=== PATIENT | female | born 1935 | race Caucasian/White ===

== ENCOUNTER 2018-01-22 19:42 | Inpatient (IN) | payer MEDICARE, OTHER ==
[2018-01-22] MEDS: ACETAMINOPHEN 325 MG TAB PO (20:26)
[2018-01-22] MEDS: CEFTRIAXONE 1 GM/50 ML (PMX) 50 ML IVPB (20:27)
[2018-01-22] MEDS: SODIUM CHLORIDE 0.9% 1L BAG IV* (20:27)
[2018-01-22 20:41] LABS: ADD MAN DIFF? NO
[2018-01-22 20:44] LABS: ABNORMAL IP MESSAGE 1; BASOPHILS % 0.2 % (0.0-2.0); EOSINOPHILS % 0.4 % (0.0-7.0); HEMATOCRIT 29.9 % (37.0-47.0); HEMOGLOBIN 9.3 g/dl (12.0-16.0); LYMPHOCYTES # 0.3 10^3/ul (0.8-2.9); LYMPHOCYTES % 6.4 % (15.0-51.0); MEAN CORPUSCULAR HEMOGLOBIN 25.1 pg (29.0-33.0); MEAN CORPUSCULAR HGB CONC 31.1 g/dl (32.0-37.0); MEAN CORPUSCULAR VOLUME 80.6 fl (82.0-101.0); MEAN PLATELET VOLUME 9.4 fl (7.4-10.4); MONOCYTE # 0.3 10^3/ul (0.3-0.9); MONOCYTES % 6.4 % (0.0-11.0); NEUTROPHIL # 4.2 10^3/ul (1.6-7.5); NEUTROPHILS % 86.4 % (39.0-77.0); PLATELET COUNT 216 10^3/UL (140-415); RED BLOOD COUNT 3.71 10^6/ul (4.20-5.40); RED CELL DISTRIBUTION WIDTH 15.3 % (11.5-14.5)
[2018-01-22 20:44] LABS: WHITE BLOOD COUNT 4.8 10^3/ul (4.8-10.8)
[2018-01-22 21:03] LABS: LACTIC ACID 1.2 mmol/L (0.5-2.0)
[2018-01-22 21:03] LABS: POSITIVE DIFF @See below
[2018-01-22 21:04] LABS: ALANINE AMINOTRANSFERASE 21 IU/L (13-69); ALBUMIN 3.7 g/dl (3.3-4.9); ALBUMIN/GLOBULIN RATIO 0.97; ALKALINE PHOSPHATASE 125 IU/L (42-121); AMYLASE 43 U/L (11-123); ANION GAP 15 (8-16); ASPARTATE AMINO TRANSFERASE 23 IU/L (15-46); BILIRUBIN,INDIRECT 0.5 mg/dl (0-1.1); BILIRUBIN,TOTAL 0.5 mg/dl (0.2-1.3); BLOOD UREA NITROGEN 14 mg/dl (7-20); CALCIUM 8.8 mg/dl (8.4-10.2); CARBON DIOXIDE 24 mmol/L (21-31); CHLORIDE 100 mmol/L (97-110); CREATININE 0.89 mg/dl (0.44-1.00); GLUCOSE 118 mg/dl (70-220); LIPASE 15 U/L (23-300); POTASSIUM 4.2 mmol/L (3.5-5.1); SODIUM 135 mmol/L (135-144); TOTAL PROTEIN 7.5 g/dl (6.1-8.1)
[2018-01-22 21:07] LABS: INR 1.11; PROTIME 14.5 Sec (11.9-14.9); PT RATIO 1.1
[2018-01-22 21:08] LABS: PARTIAL THROMBOPLASTIN TIME 35.1 Sec (25.0-35.0)
[2018-01-22 21:17] LABS: TROPONIN-I < 0.012 ng/ml (0.000-0.120)
[2018-01-22 22:16] LABS: ADD UMIC YES; UR ASCORBIC ACID NEGATIVE (NEGATIVE); UR BACTERIA MANY /HPF (NONE SEEN); UR BILIRUBIN (Dip) NEGATIVE (NEGATIVE); UR BLOOD (Dip) 2+ mg/dL (NEGATIVE); UR CLARITY CLOUDY (CLEAR); UR COLOR AMBER (YELLOW); UR GLUCOSE (Dip) NEGATIVE (NEGATIVE); UR KETONES (Dip) NEGATIVE (NEGATIVE); UR LEUKOCYTE ESTERASE (Dip) TRACE Leu/ul (NEGATIVE); UR MUCUS MODERATE /HPF (NONE SEEN); UR NITRITE (Dip) NEGATIVE (NEGATIVE); UR RBC 1 /HPF (0-5); UR SPECIFIC GRAVITY (Dip) 1.018 (1.003-1.030); UR SQUAMOUS EPITHELIAL CELL FEW /HPF (FEW); UR TOTAL PROTEIN (Dip) 1+ mg/dl (NEGATIVE); UR UROBILINOGEN (Dip) 1+ mg/dL (NEGATIVE); UR WBC 14 /HPF (0-5)
[2018-01-22 22:35] LABS: LACTIC ACID 0.5 mmol/L (0.5-2.0)
[2018-01-22] MEDS ORDERED: ACETAMINOPHEN 325 MG TAB PO (23:00)
[2018-01-22] MEDS ORDERED: ONDANSETRON 4 MG INJ IV (23:00)
[2018-01-22] MEDS ORDERED: NACL 0.9% 3 ML SYG IV (23:00)
[2018-01-22] MEDS ORDERED: BISACODYL (EC) 5 MG TAB PO (23:00)
[2018-01-22] MEDS ORDERED: DOCUSATE SODIUM 100 MG CAP PO (23:00)
[2018-01-22] MEDS ORDERED: HYDROmorphONE 4 MG TAB PO (23:00)
[2018-01-22] MEDS: IBUPROFEN 600 MG TAB PO (23:14)
[2018-01-23 00:57] LABS: LACTIC ACID 0.9 mmol/L (0.5-2.0)
[2018-01-23 07:20] LABS: ADD MAN DIFF? NO
[2018-01-23 07:26] LABS: ABNORMAL IP MESSAGE 1; BASOPHILS % 0.3 % (0.0-2.0); EOSINOPHILS # 0.1 10^3/ul (0.0-0.5); EOSINOPHILS % 1.6 % (0.0-7.0); HEMATOCRIT 29.2 % (37.0-47.0); HEMOGLOBIN 8.7 g/dl (12.0-16.0); LYMPHOCYTES # 0.5 10^3/ul (0.8-2.9); LYMPHOCYTES % 15.4 % (15.0-51.0); MEAN CORPUSCULAR HEMOGLOBIN 24.9 pg (29.0-33.0); MEAN CORPUSCULAR HGB CONC 29.8 g/dl (32.0-37.0); MEAN CORPUSCULAR VOLUME 83.4 fl (82.0-101.0); MEAN PLATELET VOLUME 9.6 fl (7.4-10.4); MONOCYTE # 0.3 10^3/ul (0.3-0.9); MONOCYTES % 9.5 % (0.0-11.0); NEUTROPHIL # 2.2 10^3/ul (1.6-7.5); NEUTROPHILS % 72.9 % (39.0-77.0); PLATELET COUNT 181 10^3/UL (140-415); RED CELL DISTRIBUTION WIDTH 15.4 % (11.5-14.5)
[2018-01-23 07:26] LABS: WHITE BLOOD COUNT 3.1 10^3/ul (4.8-10.8)
[2018-01-23 07:27] LABS: POSITIVE DIFF @See below
[2018-01-23 07:36] LABS: HEMOGLOBIN A1C 5.6 % (0-5.9)
[2018-01-23 07:46] LABS: IRON 23 ug/dl (35-150)
[2018-01-23 07:52] LABS: ALANINE AMINOTRANSFERASE 18 IU/L (13-69); ALBUMIN 2.9 g/dl (3.3-4.9); ALKALINE PHOSPHATASE 93 IU/L (42-121); ANION GAP 9 (8-16); ASPARTATE AMINO TRANSFERASE 15 IU/L (15-46); BILIRUBIN,INDIRECT 0.2 mg/dl (0-1.1); BILIRUBIN,TOTAL 0.2 mg/dl (0.2-1.3); BLOOD UREA NITROGEN 13 mg/dl (7-20); CALCIUM 8.4 mg/dl (8.4-10.2); CARBON DIOXIDE 25 mmol/L (21-31); CHLORIDE 111 mmol/L (97-110); CHOL/HDL RATIO 5.8 RATIO; CHOLESTEROL 158 mg/dl (100-200); CREATININE 0.78 mg/dl (0.44-1.00); GLUCOSE 99 mg/dl (70-220); HDL CHOLESTEROL 27 mg/dl (33-92); LDL CHOLESTEROL,CALCULATED 108 mg/dl; POTASSIUM 3.5 mmol/L (3.5-5.1); SODIUM 141 mmol/L (135-144); TOTAL PROTEIN 6.1 g/dl (6.1-8.1); TRIGLYCERIDES 117 mg/dl (0-149)
[2018-01-23 07:56] LABS: % IRON SATURATION 11 % SAT (22-52); TOTAL IRON BINDING CAPACITY 215 ug/dl (241-421)
[2018-01-23] MEDS: morphine (ER) 15 MG TAB PO (09:33)
[2018-01-23] MEDS: ENOXAPARIN 40 MG/0.4 ML SYG SC (09:39)
[2018-01-23] MEDS: CEFTRIAXONE 1 GM/50 ML (PMX) 50 ML IVPB (21:34)
[2018-01-24 08:11] LABS: ADD MAN DIFF? NO
[2018-01-24 08:17] LABS: WHITE BLOOD COUNT 3.3 10^3/ul (4.8-10.8)
[2018-01-24 08:17] LABS: BASOPHILS % 0.6 % (0.0-2.0); EOSINOPHILS % 0.9 % (0.0-7.0); HEMATOCRIT 28.7 % (37.0-47.0); HEMOGLOBIN 8.6 g/dl (12.0-16.0); LYMPHOCYTES # 0.6 10^3/ul (0.8-2.9); LYMPHOCYTES % 18.8 % (15.0-51.0); MEAN CORPUSCULAR HEMOGLOBIN 24.9 pg (29.0-33.0); MEAN CORPUSCULAR VOLUME 83.2 fl (82.0-101.0); MEAN PLATELET VOLUME 9.1 fl (7.4-10.4); MONOCYTE # 0.4 10^3/ul (0.3-0.9); MONOCYTES % 12.3 % (0.0-11.0); NEUTROPHIL # 2.2 10^3/ul (1.6-7.5); NEUTROPHILS % 67.1 % (39.0-77.0); PLATELET COUNT 213 10^3/UL (140-415); RED BLOOD COUNT 3.45 10^6/ul (4.20-5.40); RED CELL DISTRIBUTION WIDTH 15.4 % (11.5-14.5)
[2018-01-24 08:36] LABS: ANION GAP 8 (8-16); BLOOD UREA NITROGEN 10 mg/dl (7-20); CALCIUM 8.8 mg/dl (8.4-10.2); CARBON DIOXIDE 24 mmol/L (21-31); CHLORIDE 111 mmol/L (97-110); CREATININE 0.78 mg/dl (0.44-1.00); GLUCOSE 99 mg/dl (70-220); POTASSIUM 4.1 mmol/L (3.5-5.1); SODIUM 139 mmol/L (135-144)
[2018-01-24] MEDS: morphine (ER) 15 MG TAB PO (08:41)
[2018-01-24] MEDS: AMLODIPINE 5 MG TAB PO (08:42)
[2018-01-24] MEDS: ENOXAPARIN 40 MG/0.4 ML SYG SC (08:50)
[2018-01-24] MEDS ORDERED: VANCOMYCIN IV PER PHARMACY XX (09:00)
[2018-01-24] MEDS: VANCOMYCIN 1.5 GM in SOD CHLORIDE 0.9% 250 ML IVPB (10:32)
[2018-01-24 13:01] LABS: FREE T4 (FREE THYROXINE) 1.07 ng/dl (0.85-1.93)
[2018-01-24] MEDS: SOD FERRIC GLUC COMPLX 125 MG in SOD CHLORIDE 0.9% 100 ML IVPB (16:57)
[2018-01-24] MEDS: CEFTRIAXONE 1 GM/50 ML (PMX) 50 ML IVPB (18:44)
[2018-01-25 07:21] LABS: ADD MAN DIFF? NO
[2018-01-25 07:22] LABS: WHITE BLOOD COUNT 3.9 10^3/ul (4.8-10.8)
[2018-01-25 07:22] LABS: BASOPHILS % 0.3 % (0.0-2.0); EOSINOPHILS # 0.1 10^3/ul (0.0-0.5); HEMATOCRIT 28.5 % (37.0-47.0); HEMOGLOBIN 8.6 g/dl (12.0-16.0); LYMPHOCYTES # 0.7 10^3/ul (0.8-2.9); MEAN CORPUSCULAR HEMOGLOBIN 24.9 pg (29.0-33.0); MEAN CORPUSCULAR HGB CONC 30.2 g/dl (32.0-37.0); MEAN CORPUSCULAR VOLUME 82.6 fl (82.0-101.0); MONOCYTE # 0.3 10^3/ul (0.3-0.9); MONOCYTES % 7.6 % (0.0-11.0); NEUTROPHIL # 2.9 10^3/ul (1.6-7.5); NEUTROPHILS % 72.8 % (39.0-77.0); PLATELET COUNT 191 10^3/UL (140-415); RED BLOOD COUNT 3.45 10^6/ul (4.20-5.40); RED CELL DISTRIBUTION WIDTH 15.9 % (11.5-14.5)
[2018-01-25 07:26] LABS: MEAN PLATELET VOLUME 11.2 fl (7.4-10.4); POSITIVE DIFF @See below
[2018-01-25 07:45] LABS: ANION GAP 8 (8-16); BLOOD UREA NITROGEN 8 mg/dl (7-20); CALCIUM 8.6 mg/dl (8.4-10.2); CARBON DIOXIDE 24 mmol/L (21-31); CHLORIDE 109 mmol/L (97-110); CREATININE 0.68 mg/dl (0.44-1.00); GLUCOSE 96 mg/dl (70-220); POTASSIUM 4.4 mmol/L (3.5-5.1); SODIUM 137 mmol/L (135-144)
[2018-01-25] MEDS: morphine (ER) 15 MG TAB PO (08:52)
[2018-01-25] MEDS: AMLODIPINE 5 MG TAB PO (08:52)
[2018-01-25] MEDS: VANCOMYCIN 1 GM 250 ML IVPB (11:15)
[2018-01-25] MEDS: SOD FERRIC GLUC COMPLX 125 MG in SOD CHLORIDE 0.9% 100 ML IVPB (17:00)
[2018-01-25] MEDS: CEFTRIAXONE 1 GM/50 ML (PMX) 50 ML IVPB (18:33)
== END 2018-01-25 19:30 | disposition home health service (06) | DRG 872 ==
LOC: TEL 22:34 → E/R 19:42
DX: A41.1 Sepsis due to other specified staphylococcus (principal); N39.0 Urinary tract infection, site not specified; I10 Essential (primary) hypertension; E78.5 Hyperlipidemia, unspecified; D50.9 Iron deficiency anemia, unspecified; E03.9 Hypothyroidism, unspecified; Z85.048 Personal history of other malignant neoplasm of rectum, rectosigmoid junction, and anus
CPT/HCPCS: 36415; 71045; 80048; 80053; 80061; 81001; 82150; 82728; 83036; 83540; 83605; 83690; 83735; 84439; 84443; 84484; 85025; 85610; 85730; 87040; 87045; 87086; 93005; 96374; 99291-25

== ENCOUNTER 2018-11-11 01:06 | Emergency (ER) | payer MEDICARE, OTHER ==
[2018-11-11] MEDS: SOD CHLORIDE 0.9% 1,160 ML IV (01:33)
[2018-11-11] MEDS: ACETAMINOPHEN 650 MG SUPP PR (01:34)
[2018-11-11 01:35] LABS: ADD MAN DIFF? NO
[2018-11-11] MEDS: NALOXONE (0.4 MG/ML) INJ IV (01:37)
[2018-11-11] MEDS: PIPER-TAZO 3.375 GM IV (PMX) 100 ML IVPB (01:37)
[2018-11-11] MEDS: VANCOMYCIN 1 GM (PMX) 250 ML IVPB (01:37)
[2018-11-11 01:38] LABS: WHITE BLOOD COUNT 12.5 10^3/ul (4.8-10.8)
[2018-11-11 01:38] LABS: BASOPHIL # 0.1 10^3/ul (0.0-0.1); BASOPHILS % 0.6 % (0.0-2.0); HEMATOCRIT 45.3 % (37.0-47.0); HEMOGLOBIN 13.7 g/dl (12.0-16.0); LYMPHOCYTES # 0.7 10^3/ul (0.8-2.9); LYMPHOCYTES % 5.2 % (15.0-51.0); MEAN CORPUSCULAR HEMOGLOBIN 24.6 pg (29.0-33.0); MEAN CORPUSCULAR HGB CONC 30.2 g/dl (32.0-37.0); MEAN CORPUSCULAR VOLUME 81.2 fl (82.0-101.0); MEAN PLATELET VOLUME 9.9 fl (7.4-10.4); MONOCYTE # 0.4 10^3/ul (0.3-0.9); NEUTROPHIL # 11.2 10^3/ul (1.6-7.5); NEUTROPHILS % 90.1 % (39.0-77.0); PLATELET COUNT 246 10^3/UL (140-415); RED BLOOD COUNT 5.58 10^6/ul (4.20-5.40); RED CELL DISTRIBUTION WIDTH 19.7 % (11.5-14.5)
[2018-11-11 01:56] LABS: INR 1.21; PROTIME 15.4 Sec (11.9-14.9); PT RATIO 1.2
[2018-11-11 01:57] LABS: PARTIAL THROMBOPLASTIN TIME 27.4 Sec (23.0-35.0)
[2018-11-11 02:03] LABS: ALANINE AMINOTRANSFERASE 27 IU/L (13-69); ALBUMIN 3.2 g/dl (3.3-4.9); ALBUMIN/GLOBULIN RATIO 0.76; ALKALINE PHOSPHATASE 256 IU/L (42-121); ANION GAP 16 (5-13); ASPARTATE AMINO TRANSFERASE 52 IU/L (15-46); BILIRUBIN,INDIRECT 0.6 mg/dl (0-1.1); BILIRUBIN,TOTAL 0.6 mg/dl (0.2-1.3); BLOOD UREA NITROGEN 57 mg/dl (7-20); CARBON DIOXIDE 19 mmol/L (21-31); CHLORIDE 96 mmol/L (97-110); CREATININE 1.85 mg/dl (0.44-1.00); GLUCOSE 112 mg/dl (70-220); POTASSIUM 5.9 mmol/L (3.5-5.1); SODIUM 131 mmol/L (135-144); TOTAL PROTEIN 7.4 g/dl (6.1-8.1)
[2018-11-11 02:14] LABS: TROPONIN-I 0.076 ng/ml (0.000-0.120)
[2018-11-11 02:19] LABS: FREE THYROXINE INDEX (Calc) 2.62 ug/ml (0.65-3.89); T3 UPTAKE 47.7 % (23.5-40.5); T4 (THYROXINE) 5.5 ug/dl (5.5-11.0)
[2018-11-11 03:33] LABS: URINE BLOOD (Dip) POC 2+ (NEGATIVE); URINE GLUCOSE (Dip) POC Negative (NEGATIVE); URINE KETONES (Dip) POC Negative (NEGATIVE); URINE LEUKOCYTE EST (Dip) POC 1+ (NEGATIVE); URINE NITRITE (Dip) POC Negative (NEGATIVE); URINE TOTAL PROTEIN POC 1+ (NEGATIVE)
[2018-11-11] MEDS ORDERED: DEXTROSE 50% 50 ML SYRINGE IV (04:00)
[2018-11-11 04:29] LABS: ADD UMIC YES; UR ASCORBIC ACID NEGATIVE (NEGATIVE); UR BACTERIA MANY /HPF (NONE SEEN); UR BILIRUBIN (Dip) NEGATIVE (NEGATIVE); UR BLOOD (Dip) 2+ mg/dL (NEGATIVE); UR CLARITY CLOUDY (CLEAR); UR COLOR AMBER (YELLOW); UR GLUCOSE (Dip) NEGATIVE (NEGATIVE); UR KETONES (Dip) NEGATIVE (NEGATIVE); UR LEUKOCYTE ESTERASE (Dip) 2+ Leu/ul (NEGATIVE); UR MUCUS MANY /HPF (NONE SEEN); UR NITRITE (Dip) NEGATIVE (NEGATIVE); UR RBC > 182 /HPF (0-5); UR SPECIFIC GRAVITY (Dip) 1.016 (1.003-1.030); UR SQUAMOUS EPITHELIAL CELL FEW /HPF (FEW); UR TOTAL PROTEIN (Dip) NEGATIVE (NEGATIVE); UR UROBILINOGEN (Dip) NEGATIVE (NEGATIVE); UR WBC 74 /HPF (0-5)
[2018-11-11] MEDS: DEXTROSE 50% 50 ML SYRINGE IV (05:17)
[2018-11-11] MEDS: NORepinephrine 8MG/250 ML (PMX 250 ML IV (05:18)
[2018-11-11] MEDS: INSULIN REGULAR, HUMAN 100 UNIT/1 ML 3ML VIAL IVP (05:28)
[2018-11-11] MEDS: ALBUTEROL 0.5% (NEB) 2.5 MG/0.5 ML AMP INH (05:28)
[2018-11-11 06:00] LABS: AADO2 Arterial 41.8 mmHg (7.0-24.0); Allen Test ACCEPTAB; Arterial Base Excess -4.2 mmol/L (-3.0-3); Arterial Blood Gas Oxygen Sat 95.5 mmHG (95.0-100.0); Arterial COHb 0.3 % (0.0-3.0); Arterial HCO3 18.3 mmol/L (22.0-26.0); Arterial MetHb 0.2 % (0.0-1.5); Arterial pCO2 25.5 mmhg (35-45); MODE ROOM AIR; Site Left Radial
[2018-11-11] MEDS ORDERED: ACETAMINOPHEN 650MG/20.3ML CUP PO (06:00)
[2018-11-11] MEDS: ALBUMIN HUMAN 25% 100 ML IV ×2 (06:00→07:00)
[2018-11-11] MEDS: HEPARIN 5,000 UNIT/1 ML VIAL SC (06:00)
[2018-11-11] MEDS ORDERED: ONDANSETRON 4 MG INJ IV (06:00)
[2018-11-11] MEDS: PANTOPRAZOLE 40 MG INJ IV (06:00)
[2018-11-11] MEDS: VANCOMYCIN IV PER PHARMACY XX (06:05)
[2018-11-11] MEDS: NA POLYST SULFON 15 GM/60 ML BTL PO (06:08)
[2018-11-11 08:23] LABS: LACTIC ACID 6.4 mmol/L (0.5-2.0)
[2018-11-11] MEDS ORDERED: NORepinephrine 8MG/250 ML (PMX 250 ML IV (09:00)
[2018-11-11] MEDS: MEROPENEM 1 GM/50ML(PMX) 50 ML IVPB (09:00)
[2018-11-11] MEDS: morphine 2 MG INJ IV (09:37)
[2018-11-11] MEDS: MIDODRINE 5 MG TAB PO (09:37)
== END 2018-11-11 12:26 | disposition home or self-care (01) ==
LOC: E/R 01:06
DX: A41.9 Sepsis, unspecified organism (principal); R65.21 Severe sepsis with septic shock; N39.0 Urinary tract infection, site not specified; E87.5 Hyperkalemia; N17.9 Acute kidney failure, unspecified; J90 Pleural effusion, not elsewhere classified; L89.109 Pressure ulcer of unspecified part of back, unspecified stage; Z85.118 Personal history of other malignant neoplasm of bronchus and lung; Z85.048 Personal history of other malignant neoplasm of rectum, rectosigmoid junction, and anus
CPT/HCPCS: 36415; 36600; 70450; 71045; 71250; 74176; 76937; 80053; 81001; 81003; 82803; 82962; 83605; 84436; 84479; 84484; 85025; 85610; 85730; 87040-91; 87086; 94664; 96365; 96366; 96368; 96375; 99291-25